=== PATIENT | male | born 1980 | race Caucasian/White ===

== ENCOUNTER 2017-01-18 07:27 | Emergency (ER) | payer BC ==
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
[2017-01-18 08:30] VITALS: BP 131/96
[2017-01-18] MEDS ORDERED: KETOROLAC TROMETHAMINE 60 MG/2 ML VIAL IM ONE ×2 (08:33)
== END 2017-01-18 09:26 | disposition home or self-care (01) ==
LOC: ER 07:27
DX: S20.212A Contusion of left front wall of thorax, initial encounter (principal); V29.9XXA Motorcycle rider (driver) (passenger) injured in unspecified traffic accident, initial encounter; Y93.55 Activity, bike riding; Y92.488 Other paved roadways as the place of occurrence of the external cause